=== PATIENT | female | born 1985 | race Two or more races ===

== ENCOUNTER → 2024-06-03 | Outpatient (CLI) | payer BC, MEDICAID, SELFPAY ==
[2024-06-03 14:04] LABS: Glucose Estimated Average 123 mg/dL (80-131); Hemoglobin A1C 5.9 % Hgb (4.8-6.0)
== END | disposition home or self-care (01) ==
LOC: COPL 12:39
PROVIDERS: PCP Nurse Practitioner Family; Referring Provider Nurse Practitioner Family; Visit Provider Nurse Practitioner Family
DX: E11.9 Type 2 diabetes mellitus without complications (principal)
CPT/HCPCS: 36415; 83036

== ENCOUNTER → 2024-07-08 | Outpatient (CLI) | payer OTHER, MEDICAID, SELFPAY ==
[2024-07-08 16:39] LABS: Hematocrit 31.4 % (36.0-46.0); Hemoglobin 9.2 g/dL (12.0-16.0)
== END | disposition home or self-care (01) ==
LOC: COPL 14:43
PROVIDERS: PCP Nurse Practitioner Family; Referring Provider Nurse Practitioner Family; Visit Provider Nurse Practitioner Family
DX: E03.9 Hypothyroidism, unspecified (principal); E11.9 Type 2 diabetes mellitus without complications
CPT/HCPCS: 36415; 85014; 85018

== ENCOUNTER → 2024-08-31 | Outpatient (CLI) | payer BC, MEDICAID, SELFPAY ==
[2024-08-31 13:50] LABS: Basophils % (Auto) 0 % (0-2.5); Eosinophils # (Auto) 0.4 Thou/mm3 (0.0-0.5); Eosinophils % (Auto) 4 % (0-10); Hematocrit 29.2 % (36.0-46.0); Immature Granulocytes % (Auto) 0 % (0-0); Immature Granulocytes Auto 0.02 Thou/mm3 (0.00-0.00); Lymphocytes # (Auto) 4.2 Thou/mm3 (1.0-4.8); Lymphocytes % (Auto) 44 % (10-50); Mean Corpuscular HGB Conc 29.8 g/dl (31.0-37.0); Mean Corpuscular Hemoglobin 19.2 pg (25.0-35.0); Mean Corpuscular Volume 65 fL (80-100); Monocytes # (Auto) 0.5 Thou/mm3 (0.0-0.8); Monocytes % (Auto) 5 % (0-12); Neutrophils # (Auto) 4.4 Thou/mm3 (1.8-7.7); Neutrophils % (Auto) 46 % (37-80); Nucleated Red Blood Cell % 0 /100 WBC (0); Platelet Count 386 Thou/mm3 (140-440); RDW Standard Deviation 44.5 fL (36.4-46.3); Red Blood Count 4.52 Miln/mm3 (4.00-5.20); White Blood Count 9.6 Thou/mm3 (3.6-11.0)
[2024-08-31 14:02] LABS: Hemoglobin 8.7 g/dL (12.0-16.0)
[2024-08-31 15:06] LABS: Glucose Estimated Average 123 mg/dL (80-131); Hemoglobin A1C 5.9 % Hgb (4.8-6.0)
== END | disposition home or self-care (01) ==
LOC: COPL 13:03
PROVIDERS: PCP Nurse Practitioner Family; Referring Provider Nurse Practitioner Family; Visit Provider Nurse Practitioner Family
DX: Z00.00 Encounter for general adult medical examination without abnormal findings (principal); E03.9 Hypothyroidism, unspecified
CPT/HCPCS: 36415; 83036; 85025

== ENCOUNTER 2025-01-04 11:04 | Outpatient (AMB) | payer BC, MEDICAID, SELFPAY ==
--- NOTE | 2025-01-04 11:16 | GYNCLNT_ITS ---
Vital Signs 01/04/25 11:17 Height 1.57 m Height Method Stated Weight 99.847 kg Weight Measurement Method Standing Scale BMI 40.2 BP 129/84 Blood Pressure Source Automatic Cuff Blood Pressure Location Left Upper Arm Position Sitting Respiration 16 Pulse 88 Pulse Source Monitor Temp 98.1 F Temp Source Oral Pulse Oximetry (%) 98 Oxygen Delivery Method Room Air Allergies/Home Meds Allergies & Medications Allergies No Known Allergies Allergy (Verified 01/04/25 11:18) Medication Reconciliation tranexamic acid 650 mg tablet 650 mg PO TID 7 days #21 tabs 01/04/25 [Rx] Intake Visit Data Collection New Patient or Established: Established Patient (seen at [facility] within 3 years) Reason for Visit:: .REFERRAL FOR A HYSTERECTOMY Seen by Clinical Staff ONLY (RN/MA): No Lead Java 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 Required: No Do You Feel Safe at Home: Yes Authorities Contacted: N/A PCP or OBGYN visit in last 3 months: Yes Hx Now: No Are you currently on any form of Control: No Pain Present Currently: No Pain Scale Used: Prasad-Vergara/Numerical Pain scale:: 0 Smoking Status Smoking Status: Never smoker 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 Menstrual regularity: irregular Flow: heavy Monthly: Yes How many days does period last: 7 Age at menarche: 11 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 1. Little interest or pleasure in doing things: not at all 2. Feeling down, depressed, or hopeless: not at all Total score: 0 PHQ-9 3. Trouble falling or staying asleep, or sleeping too much: Not at all 4. Feeling tired or having little energy: Not at all 5. Poor appetite or overeating: Not at all 6. Feeling bad about yourself - or that you are a failure or have let yourself or your family down: Not at all 7. Trouble concentrating on things, such as reading the newspaper or watching television: Not at all 8. Moving or speaking so slowly that other people could have noticed? - Or the opposite - being so fidgety or restless that you have been moving around a lot more than usual: not at all 9. Thoughts that you would be better off or of hurting yourself in some way: Not at all Total score: 0 Source: Developed by Drs. Migel Siddiqui, Pam Wilcox, Francesco Pedroza and colleagues, with an educational jason from [employer]. Depression screen completed yes Social History Living Situation History Marital Status: Lives With: Family Housing: House Tobacco History Smoking Status: Never smoker Second Hand Smoke Exposure: No Alcohol History Alcohol Intake: Never Domestic Abuse History Do You Feel Safe at Home: Yes Office Procedures OB Clinic LOC & Office Proc's Nursing/Assessment Patient Status: Established Patient OB Clinic Nursing Assessment: Medication Reconciliation, Update PMH in EMR and Vital Signs OB Clinic Coordination of Care: Complex Care and Chronic Disease 1-5, Consent,records obtained, informed consent, Education Simp Pt/Fam, Lab and Imaging orders, Results/Orders obtained and Staff clarify orders Special Needs: Heart tones Established Patient Charge Established Patient Point Assignment: 135 Established Patient Point Charge: EP Level 4 (120-155) Assessment & Plan Diagnosis / Problem List (1) Intramural leiomyoma of uterus: Status: Acute (2) Pelvic mass in female: Status: Acute
[2025-01-04 11:17] VITALS: BP 129/84; PULSE 88; RESP 16; TEMP 36.7; O2SAT 98; BMI 40.2
== END 2025-01-04 11:47 | disposition home or self-care (01) ==
LOC: HODSOBC 11:04
PROVIDERS: Supervising Provider Obstetrics & Gynecology; Visit Provider Obstetrics & Gynecology
DX: D25.1 Intramural leiomyoma of uterus (principal)
CPT/HCPCS: 99214; G0463

== ENCOUNTER → 2025-01-29 | Outpatient (CLI) | payer BC, MEDICAID, SELFPAY ==
[2025-01-29 10:39] LABS: CA 125 11.0 U/mL (<30.2); Carcinoembryonic Antigen < 0.0 ng/mL (0.0-5.0); Follicle Stimulating Hormone 5.27 mIU/mL (See Note)
[2025-02-11 06:31] LABS: Estradiol, Free 3.53 pg/mL; Estradiol, Total 138 pg/mL
== END | disposition home or self-care (01) ==
LOC: COPL 08:46
PROVIDERS: PCP Nurse Practitioner Family; Referring Provider Obstetrics & Gynecology; Visit Provider Obstetrics & Gynecology
DX: D25.1 Intramural leiomyoma of uterus (principal); R19.00 Intra-abdominal and pelvic swelling, mass and lump, unspecified site
CPT/HCPCS: 36415; 82378; 82670; 82681; 83001; 86304

== ENCOUNTER → 2025-02-02 | Outpatient (CLI) | payer BC, MEDICAID, SELFPAY ==
--- NOTE | 2025-02-02 16:00 | XR_ITS ---
Examination: Pelvic ultrasound, transabdominal, complete Technique: Transabdominal ultrasound of the pelvis performed using grayscale imaging Date and time of exam: February 02, 2025 1545 hours INDICATIONS: Irregular heavy menses beginning 5 years ago FINDINGS: Uterus 11.3 cm, uterine body area of fibroid degeneration 7.5 x 6.9 x 7.3 cm Right ovary 2.5 cm x 3.2 cm arterial flow Left ovary 3.1 x 2.9 cm arterial flow No fluid in the cul-de-sac IMPRESSION: Enlarging vascular uterine mass compared to the prior study, differential would include malignant neoplasm of the uterus Recommend MRI pelvis follow-up pre and postcontrast
== END | disposition home or self-care (01) ==
PROVIDERS: PCP Nurse Practitioner Family; Referring Provider Obstetrics & Gynecology; Visit Provider Obstetrics & Gynecology
DX: R19.00 Intra-abdominal and pelvic swelling, mass and lump, unspecified site (principal)
CPT/HCPCS: 76856

== ENCOUNTER → 2025-02-15 | Outpatient (CLI) | payer BC, MEDICAID, SELFPAY ==
[2025-02-15 12:22] LABS: HCG,Qualitative Serum Negative
[2025-02-15 12:28] LABS: Beta HCG,Quantitative < 1 mIU/mL (<5.0)
== END | disposition home or self-care (01) ==
LOC: COPL 11:21
PROVIDERS: PCP Nurse Practitioner Family; Referring Provider Nurse Practitioner Family; Visit Provider Nurse Practitioner Family
DX: N92.1 Excessive and frequent menstruation with irregular cycle (principal)
CPT/HCPCS: 36415; 84702; 84703

== ENCOUNTER 2025-02-23 15:28 | Outpatient (AMB) | payer BC, MEDICAID, SELFPAY ==
[2025-02-23 15:55] VITALS: BP 132/87; PULSE 78; RESP 17; TEMP 36.4; O2SAT 99; BMI 39.6
--- NOTE | 2025-02-23 15:55 | AMB.GYNCLNOT ---
Vital Signs 02/23/25 15:55 Height 1.57 m Height Method Stated Weight 97.579 kg Weight Measurement Method Standing Scale BMI 39.6 BP 132/87 H Blood Pressure Source Automatic Cuff Blood Pressure Location Right Upper Arm Position Sitting Respiration 17 Pulse 78 Pulse Source Monitor Temp 97.6 F Temp Source Temporal Artery Scan Pulse Oximetry (%) 99 Oxygen Delivery Method Room Air Allergies/Home Meds Allergies & Medications Allergies No Known Allergies Allergy (Verified 02/23/25 15:56) Medication Reconciliation tranexamic acid 650 mg tablet 650 mg PO TID 7 days #21 tabs 01/04/25 [Rx Confirmed 02/23/25] Intake Visit Data Collection New Patient or Established: Established Patient (seen at [facility] within 3 years) Reason for Visit:: FOLLOW UP RESULTS Seen by Clinical Staff ONLY (RN/MA): No Story Editor Required: No Do You Feel Safe at Home: Yes Authorities Contacted: N/A PCP or OBGYN visit in last 3 months: Yes Date of Last PCP or OBGYN visit: 01/04/25 Hx Now: No Are you currently on any form of Control: No Last menstrual period: 02/16/25 Pain Present Currently: No Pain Scale Used: Prasad-Vergara/Numerical Pain scale:: 0 Smoking Status Smoking Status: Never smoker 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 Menstrual regularity: regular Flow: heavy Monthly: Yes How many days does period last: 8 Age at menarche: 10 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 1. Little interest or pleasure in doing things: not at all 2. Feeling down, depressed, or hopeless: not at all Total score: 0 PHQ-9 3. Trouble falling or staying asleep, or sleeping too much: Not at all 4. Feeling tired or having little energy: Not at all 5. Poor appetite or overeating: Not at all 6. Feeling bad about yourself - or that you are a failure or have let yourself or your family down: Not at all 7. Trouble concentrating on things, such as reading the newspaper or watching television: Not at all 8. Moving or speaking so slowly that other people could have noticed? - Or the opposite - being so fidgety or restless that you have been moving around a lot more than usual: not at all 9. Thoughts that you would be better off or of hurting yourself in some way: Not at all Total score: 0 If you checked off any problems, how difficult have these problems made it for you to do your work, take care of things at home, or get along with other people?: not difficult at all Source: Developed by Drs. Migel Siddiqui, Pam Wilcox, Francesco Pedroza and colleagues, with an educational jason from [employer]. Depression screen completed yes Social History Living Situation History Marital Status: Lives With: Family Housing: House Tobacco History Smoking Status: Never smoker Second Hand Smoke Exposure: No Alcohol History Alcohol Intake: Never Domestic Abuse History Do You Feel Safe at Home: Yes History of Present Illness HPI Narrative Rasheeda Beck presents for follow-up on uterine leiomyomas, having been referred for fibroids and hysterectomy discussion. She experiences heavy menstrual flow lasting up to 7 days. For the last 2 months, she has had unpredictable bleeding and large clots. She also mentioned green discharge, which indicates a bacterial infection. The fibroid causes heavy periods, anemia, and pain, with the fibroid described as degenerating and causing tissue discharge and potential infection. She is a 39-year-old female. ROS: Genitourinary: Positive for unpredictable bleeding, large clots, and green discharge. Diagnostic Test Results and Labs: - Pelvic ultrasound (02-02-2025): Uterus 11.3 cm with 7.5 cm fibroid (7.5 x 7.3 x 6.9 cm), right ovary 2.5 cm with atrial flow, left ovary 3.1 cm with atrial flow, no fluid in cul-de-sac - CA 125 (01-29-2025): 11 - CA (01-29-2025): negative - Free estradiol (01-29-2025): 3.53 - Total estradiol (01-29-2025): 138 - FSH (01-29-2025): 5.27 - HCG qualitative (01-29-2025): negative Exam General General Appearance: alert, in no apparent distress and healthy appearing Head Head exam: atraumatic Neck Neck exam: Present normal inspection and trachea midline Chest Chest inspection: Present normal inspection and symmetric chest wall rise External exam: Present normal external exam; Absent tenderness Neuro Neurological exam: Present oriented X3 Psych Psychiatric exam: Present normal affect and normal mood Office Procedures OBC Clinic LOC & Office Proc's Nursing/Assessment Patient Status: Established Patient OB Clinic Nursing Assessment: Medication Reconciliation, Update PMH in EMR and Vital Signs OB Clinic Coordination of Care: Complex Care and Chronic Disease 1-5, Education Complex Pt/Fam, Consent,records obtained, informed consent, Lab and Imaging orders, Results/Orders obtained and Staff clarify orders Established Patient Charge Established Patient Point Assignment: 110 Established Patient Point Charge: EP Level 3 (80-115) Assessment & Plan Diagnosis / Problem List (1) Pelvic mass in female: Status: Acute (2) Intramural leiomyoma of uterus: Status: Acute Plan Uterine Leiomyomas: - Enlarging uterine fibroids with ultrasound showing uterus increased from 9 cm to 11.3 cm and dominant fibroid grown from 6 cm to 7.5 x 7.3 x 6.9 cm. - Fibroid positioned on top of uterus making it approximately the size of a 4-5 month and nearly covers the whole uterus. - Symptoms of heavy menstrual periods lasting up to 7 days, anemia, and pain. - Recent lab work shows CA 125 of 11, negative CA, free estradiol 3.53, total estradiol 138, FSH 5.27, and negative qualitative HCG. Plan: - MRI scheduled for tomorrow to plan surgery. - Referral to Dr. Linda Zavala in [place] for robotic minimally invasive hysterectomy. - Patient can choose between minimally invasive surgery in [place] or open surgery locally [place] does not have daVinci robot). - Diabetes management will be addressed prior to/during surgery. - Connect with radiology for MRI instructions. - Schedule televisit in 2 weeks for MRI results review. Fibroid Degeneration with Infection: - Two months of unpredictable bleeding with large clots and green discharge indicating bacterial infection. - Fibroid degenerating causing tissue discharge and potential for infection. Plan: - Prescribe antibiotics for bacterial infection.
== END 2025-02-23 16:06 | disposition home or self-care (01) ==
LOC: HODSOBC 15:28
PROVIDERS: Supervising Provider Obstetrics & Gynecology; Visit Provider Obstetrics & Gynecology
DX: D25.1 Intramural leiomyoma of uterus (principal); R19.00 Intra-abdominal and pelvic swelling, mass and lump, unspecified site
CPT/HCPCS: 99213; G0463

== ENCOUNTER → 2025-02-24 | Outpatient (CLI) | payer OTHER, MEDICAID, SELFPAY ==
[2025-02-23 17:59] LABS: HCG Qualitative,Urine Negative
--- NOTE | 2025-02-24 07:00 | XR_ITS ---
EXAMINATION: MRI pelvis without intravenous contrast MRI pelvis with intravenous contrast Exam date and time: February 24, 2025, 1720 hours INDICATIONS: Pelvic pain since 2018 worse with irregular heavy bleeding the last 2 years, enlarging vascular uterine mass 7.5 x 6.9 x 7.3 cm on pelvic sonogram February 02, 2025 TECHNIQUE AND FINDINGS: Multiple axial coronal sagittal MRI pelvis images pre and post intravenous administration 19 cc gadolinium Anteverted uterus, 11 cm sagittal dimension Uterine body exophytic right lateral mass, 7.5 x 7.0 x 7.0 cm which is circumscribed on the precontrast images Postcontrast images demonstrate fairly diffuse enhancement of this mass Endometrial stripe 16 mm Left ovary 3.5 x 3.1 cm small follicular cysts Right ovary 2.9 x 2.8 cm No free fluid in the pelvis No pelvic lymphadenopathy IMPRESSION: Uterine body exophytic right lateral mass 7.5 x 7.0 x 7.0 cm, most consistent with uterine fibroid degeneration
== END | disposition home or self-care (01) ==
LOC: SMRI 06:41
PROVIDERS: PCP Nurse Practitioner Family; Referring Provider Obstetrics & Gynecology; Visit Provider Obstetrics & Gynecology
DX: R19.00 Intra-abdominal and pelvic swelling, mass and lump, unspecified site (principal)
CPT/HCPCS: 72197; 81025; A9577

== ENCOUNTER 2025-03-09 09:32 | Outpatient (AMB) | payer OTHER, MEDICAID, SELFPAY ==
--- NOTE | 2025-03-09 09:48 | AMB.GYNCLNOT ---
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 Engine Required: No Do You Feel Safe at Home: Yes Authorities Contacted: N/A PCP or OBGYN visit in last 3 months: Yes Date of Last PCP or OBGYN visit: 01/04/25 Hx Now: No Are you currently on any form of Control: No Last menstrual period: 02/17/25 Pain Present Currently: No Pain Scale Used: Prasad-Vergara/Numerical Pain scale:: 0 Smoking Status Smoking Status: Never smoker Immunizations Flu Vaccine in the Last 12 Months: No Flu Vaccine Exclusion Criteria: No Exclusion Criteria For Telemed visit only Telemed Video/Phone Visit: Yes Verbal consent obtained for Telemed visit?: Yes Verbal Consent witness name: CHARITY ESPINOZA MA Telemed Video/Phone visit w/Clinical Staff: 11-20 min 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 regularity: regular Flow: heavy Monthly: Yes How many days does period last: 8 Age at menarche: 10 Currently sexually active: No 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 1. Little interest or pleasure in doing things: not at all 2. Feeling down, depressed, or hopeless: not at all Total score: 0 PHQ-9 3. Trouble falling or staying asleep, or sleeping too much: Not at all 4. Feeling tired or having little energy: Not at all 5. Poor appetite or overeating: Not at all 6. Feeling bad about yourself - or that you are a failure or have let yourself or your family down: Not at all 7. Trouble concentrating on things, such as reading the newspaper or watching television: Not at all 8. Moving or speaking so slowly that other people could have noticed? - Or the opposite - being so fidgety or restless that you have been moving around a lot more than usual: not at all 9. Thoughts that you would be better off or of hurting yourself in some way: Not at all Total score: 0 If you checked off any problems, how difficult have these problems made it for you to do your work, take care of things at home, or get along with other people?: not difficult at all Source: Developed by Drs. Migel Siddiqui, Pam Wilcox, Francesco Pedroza and colleagues, with an educational jason from [employer]. Depression screen completed yes Social History Living Situation History Marital Status: Single Lives With: Family Housing: House Tobacco History Smoking Status: Never smoker Second Hand Smoke Exposure: No Alcohol History Alcohol Intake: Never Domestic Abuse History Do You Feel Safe at Home: Yes History of Present Illness HPI Narrative Rasheeda Beck presents with a bloated feeling, which she attributes to a uterine fibroid that was previously identified on ultrasound and has now been confirmed on MRI imaging. She describes this bloating sensation as occurring at any time and notes that it is not related to her menstrual periods. The patient understands that the fibroid is pressing on her kidneys, ureters, and intestines, causing this uncomfortable bloated sensation. ROS: Gastrointestinal: Positive for bloated feeling. - MRI: Uterus measuring 11 centimeters. Right-sided fibroid measuring 7.5 x 7 x 7 cm. Left ovary 3.5 cm with small follicular cysts. Right ovary normal. No lymph nodes identified. - Prior ultrasound: Findings consistent with current MRI results showing fibroid. Exam General General Appearance: alert, in no apparent distress and healthy appearing Head Head exam: atraumatic Neck Neck exam: Present normal inspection and trachea midline Chest Chest inspection: Present normal inspection and symmetric chest wall rise External exam: Present normal external exam; Absent tenderness Neuro Neurological exam: Present oriented X3 Psych Psychiatric exam: Present normal affect and normal mood Office Procedures OBC Clinic LOC & Office Proc's Nursing/Assessment Patient Status: Established Patient OB Clinic Nursing Assessment: Medication Reconciliation and Update PMH in EMR OB Clinic Coordination of Care: Complex Care and Chronic Disease 1-5, Education Complex Pt/Fam, Consent,records obtained, informed consent, Education Simp Pt/Fam, Results/Orders obtained and Staff clarify orders Established Patient Charge Established Patient Point Assignment: 95 Telehealth If patient is seen using Teleconference methods, complete New/Est section, but DO NOT zoya points only zoya the correct Telemed visit type Telemed Phone/Video with patient at home & ,PA,INTEGRATED LOGISTICS 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 - Compressive symptoms including bloating sensation due to pressure on surrounding organs including kidneys, ureters, and intestines. - Left ovary measures 3.5 cm with small follicular cysts which are benign and consistent with normal ovulation. - Right ovary appears normal. - Absence of lymph nodes on imaging confirms benign nature of the fibroid. Plan: - Referral generated to Dr. Linda Zavala in [place] for surgical evaluation. - Insurance authorization will be submitted first, then referral will be faxed to specialist office. - Specialist office will contact patient for appointment scheduling. - Patient advised to contact specialist office after approximately one month if no contact she receives to verify referral receipt. - Follow-up with our office as needed for assistance. - Patient advised that compressive symptoms should resolve after fibroid removal.
== END 2025-03-09 09:56 | disposition home or self-care (01) ==
LOC: HODSOBC 09:32
PROVIDERS: Supervising Provider Obstetrics & Gynecology; Visit Provider Obstetrics & Gynecology
DX: D25.1 Intramural leiomyoma of uterus (principal); N83.02 Follicular cyst of left ovary
CPT/HCPCS: 99212; Q3014; G0463

== ENCOUNTER 2025-04-25 14:31 | Emergency (ER) | payer SELFPAY ==
[2025-04-25 14:32] VITALS: BMI 39.1
--- NOTE | 2025-04-25 15:17 | PC.NURSE ---
CALLED PT BACK FROM [facility] FOR VITALS, PT STATED SHE MAY COME BACK LATER SINCE SHE HAS TO LEAVE RIGHT AWAY TO TAKE HER DAUGHTER TO OB. ELOPED AT THIS TIME AND COULD NOT WAIT TO SIGN OUT WITH NURSE AT THIS TIME.
== END 2025-04-25 15:24 | disposition left against medical advice (07) ==
PROVIDERS: Emergency Provider Emergency Medicine
DX: Z53.21 Procedure and treatment not carried out due to patient leaving prior to being seen by health care provider (principal)
CPT/HCPCS: 99281